=== PATIENT | female | born 1940 | race Caucasian/White ===

== ENCOUNTER 2022-10-26 23:07 | Emergency (ER) | payer MEDICARE ==
[~2022-10-26] VITALS: Ht 149.9 cm; Wt 44.5 kg
--- NOTE | 2022-10-26 23:35 | NUR ---
PATIENT SUSTAINED 2CM LACERATION AT HER LEFT OCCIPITAL AREA.
--- NOTE | 2022-10-26 23:35 | NUR ---
PER HOME APPLIANCE TECHNICIAN, PATIENT DIDN'T LOSS CONSCIOUSNESS AT THE FACILITY.
--- NOTE | 2022-10-26 23:35 | NUR ---
[id number] C/O LAC TO SCALP S/P WITNESSED GLF. -LOC +BLOOD THINNERS. -PAIN. PATIENT IS DIMENTED, POOR HISTORIAN. AAOX2. PLACED COMFORTABLY IN BED. VITALS CHECKED.
--- NOTE | 2022-10-26 23:56 | NUR ---
PT TAKEN TO CT VIA [facility]
[2022-10-27] MEDS ORDERED: TDAP [DIPH/PERTUSSIS/TET] 0.5 ML VIAL IM ONE ×2 (00:24)
[2022-10-27] MEDS ORDERED: LIDOCAINE MPF 1%-EPI 1:200,000 30 ML VIAL IJ ONE (00:39)
--- NOTE | 2022-10-27 00:44 | NUR ---
DR LENARD PUENTES AND RN AT PT'S BEDSIDE FOR SUTURES TO SCALP
--- NOTE | 2022-10-27 00:48 | NUR ---
SUTURING OF WOUND DONE AT BEDSIDE
--- NOTE | 2022-10-27 01:10 | NUR ---
CALLED [facility] PT WILL BE TRANSPORTED IN ABOUT 60-70 MIN
--- NOTE | 2022-10-27 02:19 | NUR ---
REPORT GIVEN TO HARMAN AT [facility]
--- NOTE | 2022-10-27 02:23 | NUR ---
PT IS MOVING AROUND THE BED. REDIRECTED AND ASKED TO GET BACK TO BED. POSITIONED COMFORTABLY
--- NOTE | 2022-10-27 04:00 | NUR ---
Patient discharged to home in stable condition. Written and verbal after care instructions given. Patient verbalizes understanding of instruction.
[2022-10-27 04:56] VITALS: BP 128/77
--- NOTE | 2022-10-27 04:59 | NUR ---
daughter made aware that patient is back in the SNF
== END 2022-10-27 04:59 | disposition home or self-care (01) ==
LOC: ER 23:21
DX: S01.01XA Laceration without foreign body of scalp, initial encounter (principal); I10 Essential (primary) hypertension; F03.90 Unspecified dementia, unspecified severity, without behavioral disturbance, psychotic disturbance, mood disturbance, and anxiety; I25.10 Atherosclerotic heart disease of native coronary artery without angina pectoris; I25.2 Old myocardial infarction; E78.5 Hyperlipidemia, unspecified; Z88.8 Allergy status to other drugs, medicaments and biological substances; W08.XXXA Fall from other furniture, initial encounter; J47.9 Bronchiectasis, uncomplicated; Y93.89 Activity, other specified; Y92.89 Other specified places as the place of occurrence of the external cause; Y99.8 Other external cause status
CPT/HCPCS: 99284; 70450; 12001; 90471; 90715; J3490